=== PATIENT | female | born 1955 | race Caucasian/White ===

== ENCOUNTER 2021-01-26 18:19 | Emergency (ER) | payer MEDICARE, OTHER, SELFPAY ==
[2021-01-26] VITALS (10 sets, daily range): BP systolic 95–145; BP diastolic 54–97; PULSE 57–112; RESP 16–18; TEMP 36.7–37; O2SAT 94–99
--- NOTE | 2021-01-26 19:33 | ED.GENADUL_ITS ---
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 Referrals: Ricardo Benitez [Primary Care Provider] - Discharge Data Discharge Date/Time-TO BE ENTERED AT DEPARTURE: 01/26/21 23:58 Medical Decision Making patient initially tells me cervical neck pain is chief complaint. then it becomes low back pain and inability to walk and she is found up in room walking around with no difficulty, gait steady. became homeless because her house is contaminated with mold and formaldehyde) but states shes now living [facility]. wanted to be [place] [facility] [place] wants to be admitted here. she did have psychiatric consult at [facility] she is not suicidal or homicidal. Medical Records Medical records reviewed: Yes I reviewed the patient's medical records. Medical records narrative: [facility] [place] today reviewed Lab Data Lab results reviewed: Yes I reviewed the patient's lab results. Lab results narrative: labs from [facility] cbc wbc 7.7 hbg 12.9, plt 263 sodium 140 k 4.2, cl 107, co2 24 bun 12 creatinine 0.7 ast 21 alt 16, alk phos 96, t bili 0.2 total protein 7.3, alb 4.2 lipase 34 tsh 4.3 MRI lumbar spine w/o contrast : no evidence of cord compression,mild to moderate multilevel degenerative changes of lumbar spine. HPI General Mode of arrival: EMS . Date/Time Provider Initiated Documentation: 01/26/21 19:33 . Information obtained by: patient . HPI Narrative: patient presents for evaluation of generalized weakness, reporting going stool and bladder incontinence, living in a motel cause of mold problem, was previously living in her car. states she has been seen in multiple ED's for these symptoms over the past few weeks, maybe longer. scheduled to see chiropractor tomorrow. states she can't get in with pcp where she states that [facility] [place] to. c/o cervical neck pain, non traumatic. General Stated Complaint: Nk/Back Pain LINO: 3 Review of Systems All systems reviewed & are unremarkable except as noted in HPI and below PFSH Social History Smoking/Tobacco Use Status: Never Smoking risk assessment performed?: Yes Alcohol Intake: never Substance use type: does not use Exam Const General: comfortable, no acute distress, disheveled, ill appearing chronically and intoxicated appearing Nutritional Appearance: obese Orientation: alert, awake and oriented x3 HENMT Head: normal to inspection, normocephalic and atraumatic Mouth: oral mucosae normal Extrem General: normal to inspection and full ROM Course Vital Signs Vital signs: Vital Signs Temperature 36.7 C 01/26/21 18:40 Pulse 88 01/26/21 18:40 Respiratory Rate 18 01/26/21 18:40 Blood Pressure 145/66 H 01/26/21 18:40 Pulse Oximetry 99 01/26/21 18:40 Temperature 36.7 C 01/26/21 18:40 Temperature Source Oral 01/26/21 18:40 Pulse 88 01/26/21 18:40 Respiratory Rate 18 01/26/21 18:40 Respiratory Effort 01/26/21 18:40 Blood Pressure 145/66 H 01/26/21 18:40 Blood Pressure Position Supine 01/26/21 18:40 Pulse Oximetry 99 01/26/21 18:40 Oxygen Delivery Method Room Air 01/26/21 18:40 Oxygen Flow Rate 0 01/26/21 18:40
--- NOTE | 2021-01-26 19:55 | NUR.NOTE ---
This RN in hallway, patient yelling out. Patient reports she climbed over the rail of her bed, onto bedside commode because she had to pee. Voids without difficulty. Able to transfer back to bed with steady gait, unassisted. Patient irritable, using raised tone, reports she asked the ambulance to take her to [facility] because that is where she gets care and they refused. Requests to share recent results with [facility]. Call light provided. Bed in lowest, locked position, side rails up x2.Nursing Note:
--- NOTE | 2021-01-26 20:21 | NUR.NOTE ---
Patient calls out, requests repeatedly for provider to see her and look at her results from [facility]. Up to bedside commode. Able to transfer independently with lots of encouragement. Warm wipes provided. Nursing Note:
[2021-01-26] MEDS: Ketorolac 30 MG/ML VIAL IM (20:45)
[2021-01-26] MEDS: Cyclobenzaprine 10 MG TAB PO (20:45)
[2021-01-26] MEDS: Lidocaine 5% Patch 1 PATCH ×2 (22:08→22:09)
[2021-01-26] MEDS: Lidocaine 5% Patch 2 PATCH TP (22:10)
== END 2021-01-26 23:58 | disposition home or self-care (01) ==
PROVIDERS: Emergency Provider Nurse Practitioner Acute Care; PCP Internal Medicine
DX: M54.2 Cervicalgia (principal)
CPT/HCPCS: 96372; 99284; 99283; J1885